=== PATIENT | female | born 1975 | race Caucasian/White ===

== ENCOUNTER 2016-12-24 15:27 | Emergency (ER) | payer BC ==
[~2016-12-24] VITALS: Ht 172.7 cm; Wt 68.0 kg
[~2016-12-24 15:27] MED LIST: CARV3.12 PO; IBUP600 PO; LORTA5 PO; NEXI20CA PO
[2016-12-24 15:38] VITALS: BP 146/113; PULSE 85; RESP 18; TEMP 99.7; O2SAT 97
[2016-12-24 16:05] VITALS: O2SAT 97
[2016-12-24] MEDS ORDERED: CARV3.12 PO (16:05)
--- NOTE | 2016-12-24 16:07 | PD ---
HPI Chief Complaint: Abdominal Pain Time Seen by Provider: 15:55 Travel History International Travel<30 days: No Contact w/Intl Traveler<30days: No Traveled to known affect area: No History of Present Illness HPI 41-year-old female complains of abdominal pain. Patient states that she started having low abdominal discomfort 2 weeks ago. Patient states that the lower abdominal discomfort got better and started having more sharp cramping epigastric pain since this morning. Patient denies any pain radiation. Patient denies any nausea vomiting diarrhea. Patient denies any dysuria or frequency. Patient has intermittent vaginal bleeding recently. Patient status post IUD placement 4 weeks ago. Patient denies any back pain. Patient states that she drinking alcohol occasionally and takes Advil occasionally. PFSH Past Medical History Heart Rhythm Problems: No Cancer: No Cardiovascular Problems: Yes High Cholesterol: No Chest Pain: Yes Congestive Heart Failure: No Diminished Hearing: No Endocrine: No Gastrointestinal Disorders: Yes GERD: Yes Genitourinary: No Hiatal Hernia: No Hypertension: Yes Immune Disorder: No Musculoskeletal: No Neurologic: No Psychiatric: No Reproductive: No Respiratory: No Ulcer: No ?: Not Dilation and Curettage (D&C): Yes Past Surgical History Abdominal Surgery: Yes (LAPROSCOPIC SURGERY POST MISCARRAGE) AICD: No Arteriovenous Shunt: No Cardiac Surgery: No Ear Surgery: No Endocrine Surgery: Yes (TONSILLECTOMY) Eye Surgery: Yes (LASIC) Genitourinary Surgery: No Gynecologic Surgery: Yes (2 D&C) Insulin Pump: No Joint Replacement: No Oral Surgery: No Pacemaker: No Thoracic Surgery: No Tonsillectomy: Yes Other Surgery: Yes Social History Alcohol Use: Yes (ALMOST EVERY DAY) Tobacco Use: No Substance Use: No Allergies-Medications (Allergen,Severity, Reaction): Coded Allergies: Penicillin (Verified Allergy, Severe, Swelling, 12/24/16) Reported Meds & Prescriptions Reported Meds & Active Scripts Active Reported Carvedilol 3.125 Mg Tab 3.125 Mg PO BID Review of Systems General / Constitutional: No: Fever Eyes: No: Visual changes HENT: No: Headaches Cardiovascular: No: Chest Pain or Discomfort Respiratory: No: Shortness of Breath Gastrointestinal: Positive: Abdominal Pain Genitourinary: No: Dysuria Musculoskeletal: No: Pain Skin: No Rash Neurologic: No: Weakness Psychiatric: No: Depression Endocrine: No: Polydipsia Hematologic/Lymphatic: No: Easy Bruising Physical Exam Narrative GENERAL: Well-nourished, well-developed patient. SKIN: Focused skin assessment warm/dry. HEAD: Normocephalic. EYES: No scleral icterus. No injection or drainage. NECK: Supple, trachea midline. No JVD or lymphadenopathy. CARDIOVASCULAR: Regular rate and rhythm without murmurs, gallops, or rubs. RESPIRATORY: Breath sounds equal bilaterally. No accessory muscle use. GASTROINTESTINAL: Abdomen soft, nondistended. Patient has mild to moderate tenderness on palpation epigastric area. No rebound tenderness. No mass. MUSCULOSKELETAL: No cyanosis, or edema. BACK: Nontender without obvious deformity. No CVA tenderness. Data Data Last Documented VS Vital Signs Date Time Temp Pulse Resp B/P Pulse Ox O2 Delivery O2 Flow Rate FiO2 12/24/16 16:05 97 Room Air 12/24/16 15:38 99.7 85 18 146/113 Orders Complete Blood Count With Diff (12/24/16 16:05) Comprehensive Metabolic Panel (12/24/16 16:05) Lipase (12/24/16 16:05) Prothrombin Time / Inr (Pt) (12/24/16 16:05) Act Partial Throm Time (Ptt) (12/24/16 16:05) Urinalysis - C+S If Indicated (12/24/16 16:05) Ct Abd/Pel W Iv Contrast(Rout) (12/24/16 16:05) Iv Access Insert/Monitor (12/24/16 16:05) Ecg Monitoring (12/24/16 16:05) Oximetry (12/24/16 16:05) Sodium Chloride 0.9% Flush (Ns Flush) (12/24/16 16:15) Pantoprazole Inj (Protonix Inj) (12/24/16 16:15) Sodium Chlor 0.9% 1000 Ml Inj (Ns 1000 M (12/24/16 16:15) Al-Mag Hy-Si 40-40-4 Mg/Ml Liq (Mag-Al P (12/24/16 16:15) Rfnrn-Qocvun-Jccuup-Pb Liq ( Liq (12/24/16 16:15) Iohexol 350 Inj (Omnipaque 350 Inj) (12/24/16 17:31) Labs Laboratory Tests Test 12/24/16 16:20 White Blood Count 6.5 TH/MM3 Red Blood Count 3.73 MIL/MM3 Hemoglobin 12.9 GM/DL Hematocrit 37.9 % Mean Corpuscular Volume 101.6 FL Mean Corpuscular Hemoglobin 34.6 PG Mean Corpuscular Hemoglobin 34.0 % Concent Red Cell Distribution Width 12.4 % Platelet Count 219 TH/MM3 Mean Platelet Volume 6.8 FL Neutrophils (%) (Auto) 63.2 % Lymphocytes (%) (Auto) 28.2 % Monocytes (%) (Auto) 7.0 % Eosinophils (%) (Auto) 1.1 % Basophils (%) (Auto) 0.5 % Neutrophils # (Auto) 4.1 TH/MM3 Lymphocytes # (Auto) 1.8 TH/MM3 Monocytes # (Auto) 0.5 TH/MM3 Eosinophils # (Auto) 0.1 TH/MM3 Basophils # (Auto) 0.0 TH/MM3 CBC Comment DIFF FINAL Differential Comment Prothrombin Time 10.8 SEC Prothromb Time International 1.0 RATIO Ratio Activated Partial 29.2 SEC Thromboplast Time Urine Color YELLOW Urine Turbidity CLEAR Urine pH 6.0 Urine Specific [place] 1.005 Urine Protein NEG mg/dL Urine Glucose (UA) NEG mg/dL Urine Ketones NEG mg/dL Urine Occult Blood TRACE Urine Nitrite NEG Urine Bilirubin NEG Urine Leukocyte Esterase TRACE Urine WBC 0-2 /hpf Urine Mucus FEW /lpf Microscopic Urinalysis Comment CULT NOT INDICATED Sodium Level 141 MEQ/L Potassium Level 3.6 MEQ/L Chloride Level 104 MEQ/L Carbon Dioxide Level 27.6 MEQ/L Anion Gap 9 MEQ/L Blood Urea Nitrogen 13 MG/DL Creatinine 0.74 MG/DL Estimat Glomerular Filtration 86 ML/MIN Rate Random Glucose 83 MG/DL Calcium Level 8.7 MG/DL Total Bilirubin 0.5 MG/DL Aspartate Amino Transf 34 U/L (AST/SGOT) Alanine Aminotransferase 45 U/L (ALT/SGPT) Alkaline Phosphatase 55 U/L Total Protein 7.2 GM/DL Albumin 3.8 GM/DL Lipase 154 U/L [facility] Medical Decision Making Medical Screen Exam Complete: Yes Emergency Medical Condition: Yes Interpretation(s) 1655 PM. CBC with WBC 6.5. Hemoglobin 12.9 hematocrit 37.9. MCV 101.6. UA negative. [address] scan abdomen pelvis negative acute pathology. Differential Diagnosis Differential diagnosis including gastritis, PUD, pancreatitis, cholecystitis, colitis, UTI, pyelonephritis, nephrolithiasis. Narrative Course 41-year-old female with low abdominal pain and epigastric abdominal pain. Normal saline solution 1 25 cc an hour. Protonix 40 mg IV. Maalox 30 cc by mouth. 10 cc by mouth. Diagnosis Primary Impression: Abdominal pain Qualified Code: R10.13 - Epigastric pain Additional Impression: Gastritis Qualified Code: K29.00 - Acute gastritis without hemorrhage, unspecified gastritis type Patient Instructions: General Instructions Additional Instructions: Take medications as directed. Follow-up with personal physician and GI specialist. Avoid alcohol, Advil. Return if worse. Med/Other Pt SpecificInfo: Prescription(s) given Scripts Dicyclomine (Bentyl)20 Mg Tab20 Mg PO TID #21 TAB Prov:Dereje Lombardo MD 12/24/16 Sucralfate (Carafate)1 Gm Tab1 Gm PO QID #120 TAB On empty stomach Prov:Dereje Lombardo MD 12/24/16 Pantoprazole (Protonix)20 Mg Tab20 Mg PO DAILY #30 TAB Prov:Dereje Lombardo MD 12/24/16 Disposition: 01 DISCHARGE HOME Condition: Stable Dereje Lombardo MD Dec 24, 2016 16:07
[2016-12-24] MEDS ORDERED: ATROPINE/SCOPOLAM/HYOSCYAM/PB ELIXIR 10 ML CUP PO ONE (16:15)
[2016-12-24] MEDS ORDERED: ALUMINUM/MAGNESIUM/SIMETH 30 ML CUP PO ONE (16:15)
[2016-12-24] MEDS ORDERED: SODIUM CHLORIDE 0.9% FLUSH 10 ML FLUSH IV FLUSH PRN (16:15)
[2016-12-24] MEDS ORDERED: PANTOPRAZOLE SODIUM 40 MG VIAL IV PUSH ONE (16:15)
[2016-12-24] MEDS ORDERED: SODIUM CHLOR 0.9% 1000 ML INJ 1,000 ML IV SCH (16:15)
[2016-12-24 16:31] LABS: AUTOMATED NEUTROPHIL # 4.1 TH/MM3 (1.8-7.7); BASOPHIL % 0.5 % (0.0-2.0); EOSINOPHIL # 0.1 TH/MM3 (0-0.4); EOSINOPHIL % 1.1 % (0.0-4.0); HEMATOCRIT 37.9 % (35.0-46.0); HEMO FLAGS DIFF FINAL; LYMPH % 28.2 % (9.0-44.0); LYMPHOCYTE # 1.8 TH/MM3 (1.0-4.8); MEAN CELL VOLUME 101.6 FL (80.0-100.0); MEAN CORPUSCULAR HEMOGLOBIN 34.6 PG (27.0-34.0); NEUT % 63.2 % (16.0-70.0); PLATELET COUNT 219 TH/MM3 (150-450); RED BLOOD COUNT 3.73 MIL/MM3 (4.00-5.30); RED CELL DISTRIBUTION WIDTH 12.4 % (11.6-17.2); WHITE BLOOD COUNT 6.5 TH/MM3 (4.0-11.0)
[2016-12-24 16:32] LABS: BLOOD, URINE TRACE (NEG); GLUCOSE,URINE NEG (NEG); KETONE, URINE NEG (NEG); NITRITE,URINE NEG (NEG)
[2016-12-24 16:40] LABS: URINE COLOR YELLOW (YELLW/STRAW)
[2016-12-24 16:41] LABS: MUCUS URINE FEW /lpf (OCC)
[2016-12-24 16:42] LABS: COMMENT (UR) CULT NOT INDICATED; CULTURE IF INDICATED CULT NOT INDICATED; WBC, URINE 0-2 /hpf (0-5)
[2016-12-24 16:49] LABS: CHLORIDE 104 MEQ/L (98-107); POTASSIUM 3.6 MEQ/L (3.5-5.1); SODIUM (NA) 141 MEQ/L (136-145)
[2016-12-24 16:53] LABS: ANION GAP 9 MEQ/L (5-15); APTT (PATIENT) 29.2 SEC (24.3-30.1); BICARBONATE 27.6 MEQ/L (21.0-32.0); BLOOD UREA NITROGEN 13 MG/DL (7-18); PROTHROMBIN TIME - PATIENT 10.8 SEC (9.8-11.6)
[2016-12-24 16:56] LABS: ALT (GPT) 45 U/L (10-53); AST (GOT) 34 U/L (15-37); GLOMERULAR FILTRATION RATE 86 ML/MIN (>89)
[2016-12-24 16:57] LABS: TOTAL BILIRUBIN ADULT 0.5 MG/DL (0.2-1.0)
[2016-12-24 16:59] LABS: ALKALINE PHOSPHATASE 55 U/L (45-117)
[2016-12-24] MEDS ORDERED: IOHEXOL 350 MG/ML 10 ML VIAL (for RAD DIAG) IV ONE (17:31)
--- NOTE | 2016-12-24 17:45 | RADHPO ---
EXAM DATE/TIME: 12/24/2016 17:13 [facility] COMPARISON: CT ABDOMEN & PELVIS W CONTRAST, February 03, 2015, 2:36. INDICATIONS : Distention. IV CONTRAST: 93 cc Omnipaque 350 (iohexol) IV ORAL CONTRAST: No oral contrast ingested. RADIATION DOSE: 7.71 CTDIvol (mGy) MEDICAL HISTORY : Cardiovascular disease. SURGICAL HISTORY : Appendectomy. ENCOUNTER: Initial ACUITY: 1 day PAIN SCALE: 4/10 LOCATION: Abdomen TECHNIQUE: Volumetric scanning of the abdomen and pelvis was performed. Using automated exposure control and ad justment of the mA and/or kV according to patient size, radiation dose was kept as low as reasonably achievable to obtain optimal diagnostic quality images. FINDINGS: The limited portion of the lung base visualized is clear. The appearance of the liver, spleen, pancreas, adrenal glands and kidneys is intact. The abdominal aorta is normal in caliber. No retroperitoneal lymphadenopathy is seen. The visualized loops of small and large bowel in the upper abdomen are unremarkable. Imaging through the pelvis is provided. Incidental note is made of an IUD. Note is also made of a 1.6 cm ovarian cyst on the right. No free fluid is seen within the pelvis. No iliac or inguinal adenopat hy is present. The visualized loops of small and large bowel are unremarkable. The visualized osseous structures are intact. CONCLUSION: 1. Negative CT scan of the abdomen and pelvis. 2. Incidental noted made of an IUD. Tanner Martinez MD on December 24, 2016 at 17:41 Board Certified Radiologist. This report was verified electronically.
[2016-12-24] MEDS ORDERED: BENT20TA PO (18:03)
[2016-12-24] MEDS ORDERED: CARA1TAB6 PO (18:03)
[2016-12-24] MEDS ORDERED: PANT20 PO (18:03)
[2016-12-24 18:10] VITALS: BP 136/91; PULSE 74; RESP 14; O2SAT 97
== END 2016-12-24 18:20 | disposition home or self-care (01) ==
LOC: PHED 15:27
DX: K29.00 Acute gastritis without bleeding (principal); K21.9 Gastro-esophageal reflux disease without esophagitis; I10 Essential (primary) hypertension; Z88.0 Allergy status to penicillin
CPT/HCPCS: 74177; 80053; 81001; 83690; 85025; 85610; 85730; 96361; 96374; 99284; C9113; J7030; Q9967

== ENCOUNTER 2017-02-19 21:00 | Emergency (ER) | payer BC ==
[~2017-02-19] VITALS: Ht 172.7 cm; Wt 69.3 kg
[~2017-02-19 21:00] MED LIST changes: +BENT20TA PO; +CARA1TAB6 PO; -IBUP600 PO; -LORTA5 PO; -NEXI20CA PO; +PANT20 PO
[2017-02-19 21:05] VITALS: BP 155/109; PULSE 93; RESP 16; TEMP 97.9; O2SAT 97
[2017-02-19] MEDS ORDERED: ALUMINUM/MAGNESIUM/SIMETH 30 ML CUP PO ONE (22:15)
[2017-02-19] MEDS ORDERED: SODIUM CHLORIDE 0.9% FLUSH 10 ML FLUSH IV FLUSH PRN (22:15)
[2017-02-19] MEDS ORDERED: DICYCLOMINE HCL 20 MG/2 ML VIAL IM ONE (22:15)
[2017-02-19] MEDS ORDERED: MORPHINE SULFATE 4 MG/ML INJ IV PUSH ONE (22:15)
[2017-02-19] MEDS ORDERED: SODIUM CHLOR 0.9% 1000 ML INJ 1,000 ML IV SCH (22:15)
[2017-02-19] MEDS ORDERED: LIDOCAINE VISCOUS 2% SOLN 15 ML UDC PO ONE (22:15)
--- NOTE | 2017-02-19 22:22 | PD ---
HPI Chief Complaint: Abdominal Pain Time Seen by Provider: 22:15 Travel History International Travel<30 days: No Contact w/Intl Traveler<30days: No Traveled to known affect area: No History of Present Illness HPI 41-year-old female here for evaluation of abdominal pain. Patient reports epigastric abdominal pain since November of this year. Pain is described as burning, constant. She was seen in the emergency department last month for the same and had reassuring workup including labs and CT abdomen pelvis. She states she is followed up with GI Dr Welch, and has had several tests. She tells me that she had a HIDA scan recently and was told that it was normal today. She has not yet had an endoscopy. Pain is constant, moderate to severe. She has been taking pantoprazole without improvement in symptoms. She denies chest pain. She does drink alcohol daily, consuming about 6 beers daily. History of appendectomy. No other abdominal surgeries. PFSH Past Medical History Heart Rhythm Problems: No Cancer: No Cardiovascular Problems: Yes High Cholesterol: No Chest Pain: Yes Congestive Heart Failure: No Diminished Hearing: No Endocrine: No Gastrointestinal Disorders: Yes GERD: Yes Genitourinary: No Hiatal Hernia: No Hypertension: Yes Immune Disorder: No Musculoskeletal: No Neurologic: No Psychiatric: No Reproductive: No Respiratory: No Ulcer: No ?: Not Dilation and Curettage (D&C): Yes (X's 2) Past Surgical History Abdominal Surgery: Yes (Laproscopic post miscarriage (R/O tubal)) AICD: No Appendectomy: Yes Arteriovenous Shunt: No Cardiac Surgery: No Ear Surgery: No Endocrine Surgery: Yes (TONSILLECTOMY) Eye Surgery: Yes (Lasik) Genitourinary Surgery: No Gynecologic Surgery: Yes (2 D&C) Insulin Pump: No Joint Replacement: No Oral Surgery: No Pacemaker: No Thoracic Surgery: No Tonsillectomy: Yes Other Surgery: Yes Social History Alcohol Use: Yes (2-8 beers daily) Tobacco Use: No Substance Use: No Allergies-Medications (Allergen,Severity, Reaction): Coded Allergies: Penicillin (Verified Allergy, Severe, Swelling, 02/19/17) Reported Meds & Prescriptions Reported Meds & Active Scripts Active Bentyl (Dicyclomine HCl) 20 Mg Tab 20 Mg PO TID Carafate (Sucralfate) 1 Gm Tab 1 Gm PO QID On empty stomach Protonix (Pantoprazole Sodium) 20 Mg Tab 20 Mg PO DAILY Reported Carvedilol 3.125 Mg Tab 3.125 Mg PO BID Review of Systems Except as stated in HPI: all other systems reviewed are Neg Physical Exam Narrative GENERAL: Well-developed, well-nourished, no acute distress. SKIN: Focused skin assessment warm/dry. No rash. HEAD: Atraumatic. Normocephalic. EYES: Pupils equal and round. No scleral icterus. No injection or drainage. ENT: Mucous membranes pink and moist.. CARDIOVASCULAR: Regular rate and rhythm. No murmur appreciated. RESPIRATORY: No accessory muscle use. Clear to auscultation. Breath sounds equal bilaterally. GASTROINTESTINAL: Abdomen soft, nondistended. Mild epigastric tenderness without peritoneal signs. Rest of abdomen is soft and nontender. Normal bowel sounds. No hernias. MUSCULOSKELETAL: No obvious deformities. No clubbing. No cyanosis. No edema. NEUROLOGICAL: Awake and alert. No obvious cranial nerve deficits. Motor grossly within normal limits. Normal speech. PSYCHIATRIC: Appropriate mood and affect; insight and judgment normal. Data Data Last Documented VS Vital Signs Date Time Temp Pulse Resp B/P Pulse Ox O2 Delivery O2 Flow Rate FiO2 02/19/17 23:22 74 16 121/84 99 Room Air 02/19/17 21:05 97.9 Orders Beta Hcg (Quant/Titer) (02/19/17 22:15) Complete Blood Count With Diff (02/19/17 22:15) Comprehensive Metabolic Panel (02/19/17 22:15) Lipase (02/19/17 22:15) Prothrombin Time / Inr (Pt) (02/19/17 22:15) Act Partial Throm Time (Ptt) (02/19/17 22:15) Urinalysis - C+S If Indicated (02/19/17 22:15) Ct Abd/Pel W Iv Contrast(Rout) (02/19/17 22:15) Iv Access Insert/Monitor (02/19/17 22:15) Ecg Monitoring (02/19/17 22:15) Oximetry (02/19/17 22:15) Morphine Inj (Morphine Inj) (02/19/17 22:15) Sodium Chlor 0.9% 1000 Ml Inj (Ns 1000 M (02/19/17 22:15) Sodium Chloride 0.9% Flush (Ns Flush) (02/19/17 22:15) Al-Mag Hy-Si 40-40-4 Mg/Ml Liq (Mag-Al P (02/19/17 22:15) Lidocaine 2% Viscous (Xylocaine 2% Visco (02/19/17 22:15) Ed Urine Pregnancytest Poc (02/19/17 22:15) Dicyclomine Inj (Bentyl Inj) (02/19/17 22:15) Electrocardiogram (02/19/17 ) Alcohol (Ethanol) (02/19/17 22:15) Ckmb (Isoenzyme) Profile (02/19/17 22:15) Troponin I (02/19/17 22:15) Labs Laboratory Tests Test 02/19/17 22:40 White Blood Count 5.9 TH/MM3 Red Blood Count 3.84 MIL/MM3 Hemoglobin 13.2 GM/DL Hematocrit 39.2 % Mean Corpuscular Volume 102.0 FL Mean Corpuscular Hemoglobin 34.4 PG Mean Corpuscular Hemoglobin 33.7 % Concent Red Cell Distribution Width 12.6 % Platelet Count 215 TH/MM3 Mean Platelet Volume 7.0 FL Neutrophils (%) (Auto) 50.9 % Lymphocytes (%) (Auto) 37.3 % Monocytes (%) (Auto) 9.2 % Eosinophils (%) (Auto) 2.0 % Basophils (%) (Auto) 0.6 % Neutrophils # (Auto) 3.1 TH/MM3 Lymphocytes # (Auto) 2.2 TH/MM3 Monocytes # (Auto) 0.5 TH/MM3 Eosinophils # (Auto) 0.1 TH/MM3 Basophils # (Auto) 0.0 TH/MM3 CBC Comment DIFF FINAL Differential Comment Prothrombin Time 10.7 SEC Prothromb Time International 1.0 RATIO Ratio Activated Partial 28.4 SEC Thromboplast Time Urine Color STRAW Urine Turbidity CLEAR Urine pH 5.5 Urine Specific [place] 1.003 Urine Protein NEG mg/dL Urine Glucose (UA) NEG mg/dL Urine Ketones NEG mg/dL Urine Occult Blood NEG Urine Nitrite NEG Urine Bilirubin NEG Urine Leukocyte Esterase NEG Urine Squamous Epithelial 0-5 /hpf Cells Urine Amorphous Sediment SMALL Urine Bacteria OCC /hpf Microscopic Urinalysis Comment CULT NOT INDICATED Sodium Level 140 MEQ/L Potassium Level 3.2 MEQ/L Chloride Level 105 MEQ/L Carbon Dioxide Level 26.7 MEQ/L Anion Gap 8 MEQ/L Blood Urea Nitrogen 8 MG/DL Creatinine 0.62 MG/DL Estimat Glomerular Filtration 106 ML/MIN Rate Random Glucose 80 MG/DL Calcium Level 8.6 MG/DL Total Bilirubin 0.5 MG/DL Aspartate Amino Transf 31 U/L (AST/SGOT) Alanine Aminotransferase 36 U/L (ALT/SGPT) Alkaline Phosphatase 52 U/L Total Creatine Kinase 64 U/L Troponin I LESS THAN 0.02 NG/ML Total Protein 7.2 GM/DL Albumin 3.7 GM/DL Lipase 169 U/L Human Chorionic Gonadotropin, LESS THAN 1 Quant MIU/ML Ethyl Alcohol Level 135 MG/DL [facility] Medical Decision Making Medical Screen Exam Complete: Yes Emergency Medical Condition: Yes Medical Record Reviewed: Yes Interpretation(s) EKG: Sinus, rate 75, normal axis, normal intervals, nonspecific septal T wave changes, no acute ischemic abnormalities. Differential Diagnosis Gastritis, peptic ulcer disease, pancreatitis, hepatobiliary disease, Sanchez's esophagus, ACS less likely Narrative Course Vital signs reviewed. CBC shows WBC 5.9, hemoglobin 13.2, hematocrit 39.2, platelets 2:15, MCV 102. CMP is remarkable for potassium 3.2, otherwise unremarkable. Lipase is 169. Cardiac enzymes are negative. Beta hCG is negative. Alcohol level is 135. UA is not suggestive of UTI. I did not believe the patient's symptoms are cardiac in nature. They have been going on for the last 2-3 months, and are most likely related to the patient's excessive alcohol use. At approximately midnight at the end of my shift the patient was signed out to Dr. Subramanian who will follow up with CT abdomen pelvis and will disposition the patient appropriately. At this and the patient is resting comfortably. She was given a dose of morphine, GI cocktail, Bentyl, and reports improvement in symptoms. Scotty Stanton MD February 19, 2017 22:22
[2017-02-19 23:10] LABS: AUTOMATED NEUTROPHIL # 3.1 TH/MM3 (1.8-7.7); BASOPHIL % 0.6 % (0.0-2.0); EOSINOPHIL # 0.1 TH/MM3 (0-0.4); HEMATOCRIT 39.2 % (35.0-46.0); HEMO FLAGS DIFF FINAL; LYMPH % 37.3 % (9.0-44.0); LYMPHOCYTE # 2.2 TH/MM3 (1.0-4.8); MEAN CORPUSCULAR HEMOGLOBIN 34.4 PG (27.0-34.0); MEAN CORPUSCULAR HGB CONC 33.7 % (32.0-36.0); MONO % 9.2 % (0.0-8.0); NEUT % 50.9 % (16.0-70.0); PLATELET COUNT 215 TH/MM3 (150-450); RED BLOOD COUNT 3.84 MIL/MM3 (4.00-5.30); RED CELL DISTRIBUTION WIDTH 12.6 % (11.6-17.2); WHITE BLOOD COUNT 5.9 TH/MM3 (4.0-11.0)
[2017-02-19 23:17] LABS: BLOOD, URINE NEG (NEG); GLUCOSE,URINE NEG (NEG); KETONE, URINE NEG (NEG); NITRITE,URINE NEG (NEG); PH, URINE 5.5 (5.0-8.5)
[2017-02-19 23:22] VITALS: BP 121/84; PULSE 74; RESP 16; O2SAT 99
[2017-02-19 23:22] LABS: CHLORIDE 105 MEQ/L (98-107); POTASSIUM 3.2 MEQ/L (3.5-5.1); SODIUM (NA) 140 MEQ/L (136-145)
[2017-02-19 23:26] LABS: ANION GAP 8 MEQ/L (5-15); BICARBONATE 26.7 MEQ/L (21.0-32.0); BLOOD UREA NITROGEN 8 MG/DL (7-18)
[2017-02-19 23:29] LABS: ALT (GPT) 36 U/L (10-53); AST (GOT) 31 U/L (15-37); GLOMERULAR FILTRATION RATE 106 ML/MIN (>89)
[2017-02-19 23:30] LABS: TOTAL BILIRUBIN ADULT 0.5 MG/DL (0.2-1.0)
[2017-02-19 23:31] LABS: ALKALINE PHOSPHATASE 52 U/L (45-117)
[2017-02-19 23:32] LABS: URINE COLOR STRAW (YELLW/STRAW)
[2017-02-19 23:33] LABS: APTT (PATIENT) 28.4 SEC (24.3-30.1); BACTERIA, URINE OCC /hpf; PROTHROMBIN TIME - PATIENT 10.7 SEC (9.8-11.6); SQUAMOUS EPITHELIAL CELL URINE 0-5 /hpf (0-5)
[2017-02-19 23:34] LABS: BETA HCG QUANT LESS THAN 1 MIU/ML (0-5); COMMENT (UR) CULT NOT INDICATED; CULTURE IF INDICATED CULT NOT INDICATED
[2017-02-19 23:49] LABS: CREATINE KINASE 64 U/L (26-192)
--- NOTE | 2017-02-20 00:10 | PD ---
Physical Exam Date Seen by Provider: February 20, 2017 Time Seen by Provider: 00:09 Narrative accepted in transfer of care from Dr Stanton Data Data Last Documented VS Vital Signs Date Time Temp Pulse Resp B/P Pulse Ox O2 Delivery O2 Flow Rate FiO2 02/19/17 23:22 74 16 121/84 99 Room Air 02/19/17 21:05 97.9 Orders Beta Hcg (Quant/Titer) (02/19/17 22:15) Complete Blood Count With Diff (02/19/17 22:15) Comprehensive Metabolic Panel (02/19/17 22:15) Lipase (02/19/17 22:15) Prothrombin Time / Inr (Pt) (02/19/17 22:15) Act Partial Throm Time (Ptt) (02/19/17 22:15) Urinalysis - C+S If Indicated (02/19/17 22:15) Iv Access Insert/Monitor (02/19/17 22:15) Ecg Monitoring (02/19/17 22:15) Oximetry (02/19/17 22:15) Morphine Inj (Morphine Inj) (02/19/17 22:15) Sodium Chlor 0.9% 1000 Ml Inj (Ns 1000 M (02/19/17 22:15) Sodium Chloride 0.9% Flush (Ns Flush) (02/19/17 22:15) Al-Mag Hy-Si 40-40-4 Mg/Ml Liq (Mag-Al P (02/19/17 22:15) Lidocaine 2% Viscous (Xylocaine 2% Visco (02/19/17 22:15) Ed Urine Pregnancytest Poc (02/19/17 22:15) Dicyclomine Inj (Bentyl Inj) (02/19/17 22:15) Electrocardiogram (02/19/17 ) Alcohol (Ethanol) (02/19/17 22:15) Ckmb (Isoenzyme) Profile (02/19/17 22:15) Troponin I (02/19/17 22:15) Iohexol 350 Inj (Omnipaque 350 Inj) (02/20/17 00:48) Ct Abd/Pel W Iv Contrast(Rout) (02/20/17 00:01) Labs Laboratory Tests Test 02/19/17 22:40 White Blood Count 5.9 TH/MM3 Red Blood Count 3.84 MIL/MM3 Hemoglobin 13.2 GM/DL Hematocrit 39.2 % Mean Corpuscular Volume 102.0 FL Mean Corpuscular Hemoglobin 34.4 PG Mean Corpuscular Hemoglobin 33.7 % Concent Red Cell Distribution Width 12.6 % Platelet Count 215 TH/MM3 Mean Platelet Volume 7.0 FL Neutrophils (%) (Auto) 50.9 % Lymphocytes (%) (Auto) 37.3 % Monocytes (%) (Auto) 9.2 % Eosinophils (%) (Auto) 2.0 % Basophils (%) (Auto) 0.6 % Neutrophils # (Auto) 3.1 TH/MM3 Lymphocytes # (Auto) 2.2 TH/MM3 Monocytes # (Auto) 0.5 TH/MM3 Eosinophils # (Auto) 0.1 TH/MM3 Basophils # (Auto) 0.0 TH/MM3 CBC Comment DIFF FINAL Differential Comment Prothrombin Time 10.7 SEC Prothromb Time International 1.0 RATIO Ratio Activated Partial 28.4 SEC Thromboplast Time Urine Color STRAW Urine Turbidity CLEAR Urine pH 5.5 Urine Specific [place] 1.003 Urine Protein NEG mg/dL Urine Glucose (UA) NEG mg/dL Urine Ketones NEG mg/dL Urine Occult Blood NEG Urine Nitrite NEG Urine Bilirubin NEG Urine Leukocyte Esterase NEG Urine Squamous Epithelial 0-5 /hpf Cells Urine Amorphous Sediment SMALL Urine Bacteria OCC /hpf Microscopic Urinalysis Comment CULT NOT INDICATED Sodium Level 140 MEQ/L Potassium Level 3.2 MEQ/L Chloride Level 105 MEQ/L Carbon Dioxide Level 26.7 MEQ/L Anion Gap 8 MEQ/L Blood Urea Nitrogen 8 MG/DL Creatinine 0.62 MG/DL Estimat Glomerular Filtration 106 ML/MIN Rate Random Glucose 80 MG/DL Calcium Level 8.6 MG/DL Total Bilirubin 0.5 MG/DL Aspartate Amino Transf 31 U/L (AST/SGOT) Alanine Aminotransferase 36 U/L (ALT/SGPT) Alkaline Phosphatase 52 U/L Total Creatine Kinase 64 U/L Troponin I LESS THAN 0.02 NG/ML Total Protein 7.2 GM/DL Albumin 3.7 GM/DL Lipase 169 U/L Human Chorionic Gonadotropin, LESS THAN 1 Quant MIU/ML Ethyl Alcohol Level 135 MG/DL [facility] Medical Record Reviewed: Yes Supervised Visit with BENNETT: No Interpretation(s) CT abdomen and pelvis with IV contrast reading per radiologist Dr. Tanner Martinez "negative CT of abdomen and pelvis incidental note made of IUD" and right 1.6 cm ovarian cyst Differential Diagnosis accepted in transfer of care from Dr Stanton; please refer to his dictation Narrative Course accepted in transfer of care from Dr Stanton for follow p of pending CT and patient disposition It is now 1:16 AM patient has been ambulatory about the emergency department; CT abdomen and pelvis resulted and per reading radiologist Dr. Martinez negative CT of abdomen and pelvis incidental note of IUD and identified to have a 1.6 cm ovarian cysts. Patient is stable for outpatient management and follow-up with her seal extrusion operator as scheduled Diagnosis Primary Impression: Abdominal pain Additional Impression: Gastritis Referrals: Push Button Switch Assembler call for appointment Patient Instructions: General Instructions Additional Instruction: Recommend bland diet; follow-up with your seal extrusion operator call office in a.m. ; follow up with your primary care provider call office to schedule appointment ; take Protonix and Carafate as prescribed; return to the emergency department for any concerns or change in condition; avoid alcohol consumption Med/Other Pt SpecificInfo: Prescription(s) given Disposition: 01 DISCHARGE HOME Condition: Stable Cecilia Subramanian MD February 20, 2017 00:10
[2017-02-20] MEDS ORDERED: IOHEXOL 350 MG/ML 10 ML VIAL (for RAD DIAG) IV ONE (00:48)
[2017-02-20 01:49] VITALS: BP 127/78
--- NOTE | 2017-02-20 08:25 | RADHPO ---
EXAM DATE/TIME: 02/20/2017 00:27 [facility] COMPARISON: No previous studies available for comparison. INDICATIONS : Epigastric pain. IV CONTRAST: 100 cc Omnipaque 350 (iohexol) IV ORAL CONTRAST: No oral contrast ingested. RADIATION DOSE: 8.62 CTDIvol (mGy) MEDICAL HISTORY : Gastroesophageal reflux disease. Hypertension. SURGICAL HISTORY : Appendectomy. ENCOUNTER: Initial ACUITY: 2 months PAIN SCALE: 9/10 LOCATION: Bilateral upper quadrant TECHNIQUE: Volumetric scanning of the abdomen and pelvis was performed. Using automated exposure control and ad justment of the mA and/or kV according to patient size, radiation dose was kept as low as reasonably achievable to obtain optimal diagnostic quality images. FINDINGS: LOWER LUNGS: The visualized lower lungs are clear. LIVER: Mild diffuse decrease in hepatic attenuation may be steatosis. No evidence of mass or biliary ductal dilatation. Gallbladder is unremarkable for CT appearance. SPLEEN: Normal size without lesion. PANCREAS: Within normal limits. KIDNEYS: Normal in size and shape. There is no mass, stone or hydronephrosis. ADRENAL GLANDS: Within normal limits. VASCULAR: There is no aortic aneurysm. BOWEL/MESENTERY: Mild nonspecific gaseous distention of bowel loops. No evidence of wall thickening or inflammatory ch alonzo.. ABDOMINAL WALL: Within normal limits. RETROPERITONEUM: There is no lymphadenopathy. BLADDER: Moderately dilated. REPRODUCTIVE: Intrauterine device present. No pelvic mass or free fluid. INGUINAL: There is no lymphadenopathy or hernia. MUSCULOSKELETAL: Within normal limits for patient age. CONCLUSION: Mild hepatic steatosis. Dilated urinary bladder. No definite acute CT findings in the abdomen or pelvis Candelario Cuevas MD on February 20, 2017 at 0:58 Board Certified Radiologist. This report was verified electronically.
--- NOTE | 2017-02-20 09:14 | EKG ---
Date Performed: 02/19/2017 Time Performed: 22:32:32 PTAGE: 41 years EKG: Sinus rhythm . Septal T wave changes are nonspecific Borderline ECG PREVIOUS TRACING : 07/27/2014 01.01 DOCTOR: Betito Brown Interpretating Date/Time 02/20/2017 09:12:27
== END 2017-02-20 01:59 | disposition home or self-care (01) ==
LOC: PHED 21:00
DX: K29.70 Gastritis, unspecified, without bleeding (principal); N83.201 Unspecified ovarian cyst, right side; K21.9 Gastro-esophageal reflux disease without esophagitis; I10 Essential (primary) hypertension; Z79.899 Other long term (current) drug therapy; Z88.0 Allergy status to penicillin
CPT/HCPCS: 74177; 80053; 80307; 81001; 82550; 83690; 84484; 84702; 84703; 85025; 85610; 85730; 93005; 96361; 96372; 96374; 99285; J0500; J2270; J7030; Q9967